=== PATIENT | male | born 1975 | race Caucasian/White ===

== ENCOUNTER 2018-06-27 01:57 | Inpatient (IN) | payer MEDICAID ==
[2018-06-27] VITALS (10 sets, daily range): BP systolic 108–166
[~2018-06-27] VITALS: Ht 185.4 cm; Wt 185.1 kg
[2018-06-27] MEDS ORDERED: DILTIAZEM HCL 25 MG/5 ML VIAL IVP ONE ×2 (02:15→03:00)
[2018-06-27] MEDS ORDERED: DILTIAZEM HCL 25 MG/5 ML VIAL ONE (02:19)
[2018-06-27 02:28] LABS: BASOPHILS % (AUTO) 0.8 % (0.0-2.0); EOSINOPHILS # (AUTO) 0.1 K/uL (0.0-0.4); EOSINOPHILS % (AUTO) 1.5 % (0.0-4.0); HEMATOCRIT 30.5 % (36-54); LYMPHOCYTES # (AUTO) 1.8 K/uL (1.0-5.5); LYMPHOCYTES % (AUTO) 33.7 % (20.5-51.5); MEAN CORPUSCULAR HEMOGLOBIN 22 pg (27-31); MEAN CORPUSCULAR HGB CONC 30 % (32-36); MEAN CORPUSCULAR VOLUME 76 fL (79.0-98.0); MONOCYTES # (AUTO) 0.5 K/uL (0.0-1.0); MONOCYTES % (AUTO) 9.2 % (1.7-9.3); NEUTROPHILS # (AUTO) 2.9 K/uL (1.8-7.7); NEUTROPHILS % (AUTO) 54.8 % (40.0-70.0); PLATELET COUNT (AUTO) 211 K/uL (130-430); RED BLOOD CELL COUNT(AUTO) 4.03 MIL/uL (4.2-6.2); RED CELL DISTRIBUTION WIDTH 21.8 % (9.0-15.0); WHITE BLOOD COUNT (AUTO) 5.2 K/uL (4.8-10.8)
[2018-06-27 02:42] LABS: CALCIUM 8.7 mg/dL (8.4-11.0); CREATININE 0.97 mg/dL (0.55-1.30)
[2018-06-27 02:46] LABS: INR 0.9 (0.80-1.20); PROTHROMBIN TIME 9.6 SECS (9.5-12.5)
[2018-06-27 02:47] LABS: ALBUMIN 3.2 g/dL (3.4-4.8); TOTAL BILIRUBIN 0.7 mg/dL (0.0-1.0)
[2018-06-27] MEDS ORDERED: ASA81 PO (03:23)
[2018-06-27] MEDS ORDERED: FERR-69 PO (03:23)
[2018-06-27] MEDS ORDERED: THIA50TA10 PO (03:23)
[2018-06-27] MEDS ORDERED: METO-442 PO (03:23)
[2018-06-27] MEDS ORDERED: FOLI-43 PO (03:23)
[2018-06-27] MEDS ORDERED: FURO-149 PO (03:23)
[2018-06-27] MEDS ORDERED: DILT240C54 PO (03:23)
[2018-06-27] MEDS ORDERED: DILTIAZEM HCL 125 MG in D5W 100 ML IV ONE (04:00)
[2018-06-27] MEDS ORDERED: KETOROLAC TROMETHAMINE 30 MG VIAL IVP ONE (04:00)
[2018-06-27] MEDS ORDERED: DILTIAZEM HCL 125 MG/25 ML VIAL IV ONE (04:10)
[2018-06-27] MEDS ORDERED: POTASSIUM CHLORIDE 20 MEQ TAB.PRT.SR PO ONE (04:30)
[2018-06-27] MEDS ORDERED: MAGNESIUM OXIDE 400 MG TABLET PO ONE (04:30)
[2018-06-27 05:12] LABS: THYROID STIMULATING HORMONE 2.11 uIu/mL (0.34-4.82)
[2018-06-27] MEDS ORDERED: MAGNESIUM OXIDE 400 MG TABLET ONE (05:28)
[2018-06-27] MEDS ORDERED: ACETAMINOPHEN 325 MG TABLET PO PRN (08:30)
[2018-06-27] MEDS ORDERED: METOPROLOL TARTRATE 50 MG TABLET PO SCH (09:00)
[2018-06-27] MEDS: FERROUS SULFATE 325 MG TABLET.DR PO SCH ×2 (10:16→20:04)
[2018-06-27] MEDS: POTASSIUM CHLORIDE 20 MEQ TAB.PRT.SR PO SCH ×2 (10:17→20:03)
[2018-06-27] MEDS: PANTOPRAZOLE SODIUM 40 MG TAB PO SCH (10:17)
[2018-06-27] MEDS: FOLIC ACID 1 MG TABLET PO SCH (10:17)
[2018-06-27] MEDS: METOPROLOL TARTRATE 50 MG TABLET PO SCH ×2 (10:18→20:04)
[2018-06-27] MEDS: THIAMINE HCL 100 MG TABLET PO SCH (10:18)
[2018-06-27] MEDS: SPIRONOLACTONE 50 MG TABLET (ALDACTONE) PO SCH ×2 (10:21→20:04)
[2018-06-27] MEDS: FUROSEMIDE 40 MG/4 ML VIAL IVP SCH ×2 (10:22→20:05)
[2018-06-27] MEDS: traMADol HCL HCL 50 MG TABLET (ULTRAM) PO PRN ×2 (16:35→22:43)
[2018-06-27] MEDS ORDERED: ONDANSETRON HCL 4 MG/2 ML VIAL IM PRN (21:45)
[2018-06-27] MEDS ORDERED: IPRATROPIUM/ALBUTEROL SULFATE 3 ML AMPUL.NEB (DUONEB) INH PRN (22:45)
[2018-06-28 00:41] VITALS: BP_SYST 124
[2018-06-28] MEDS: traMADol HCL HCL 50 MG TABLET (ULTRAM) PO PRN ×3 (04:44→22:45)
[2018-06-28 05:46] LABS: PROTHROMBIN TIME 10.3 SECS (9.5-12.5)
[2018-06-28] MEDS ORDERED: DIGOXIN 0.5 MG/2 ML AMP IVP ONE (06:00)
[2018-06-28 06:32] LABS: BASOPHILS # (AUTO) 0.1 K/uL (0.0-0.2); BASOPHILS % (AUTO) 1.8 % (0.0-2.0); EOSINOPHILS # (AUTO) 0.2 K/uL (0.0-0.4); EOSINOPHILS % (AUTO) 2.4 % (0.0-4.0); HEMATOCRIT 29.9 % (36-54); LYMPHOCYTES # (AUTO) 1.2 K/uL (1.0-5.5); LYMPHOCYTES % (AUTO) 19.7 % (20.5-51.5); MEAN CORPUSCULAR HEMOGLOBIN 23 pg (27-31); MEAN CORPUSCULAR HGB CONC 30 % (32-36); MEAN CORPUSCULAR VOLUME 75 fL (79.0-98.0); MONOCYTES # (AUTO) 0.8 K/uL (0.0-1.0); MONOCYTES % (AUTO) 12.8 % (1.7-9.3); NEUTROPHILS % (AUTO) 63.3 % (40.0-70.0); PLATELET COUNT (AUTO) 230 K/uL (130-430); RED BLOOD CELL COUNT(AUTO) 3.97 MIL/uL (4.2-6.2); RED CELL DISTRIBUTION WIDTH 21.9 % (9.0-15.0); WHITE BLOOD COUNT (AUTO) 6.3 K/uL (4.8-10.8)
[2018-06-28 06:55] LABS: ALBUMIN 3.1 g/dL (3.4-4.8); CALCIUM 8.9 mg/dL (8.4-11.0); CREATININE 0.92 mg/dL (0.55-1.30); POTASSIUM 3.5 mmol/L (3.5-5.1); THYROID STIMULATING HORMONE 2.26 uIu/mL (0.34-4.82); TOTAL BILIRUBIN 1.1 mg/dL (0.0-1.0)
[2018-06-28 07:02] LABS: TOTAL IRON BIND. CAPACITY 489 ug/dL (250-450)
[2018-06-28] MEDS: FOLIC ACID 1 MG TABLET PO SCH (07:56)
[2018-06-28] MEDS: THIAMINE HCL 100 MG TABLET PO SCH (07:56)
[2018-06-28] MEDS: FUROSEMIDE 40 MG/4 ML VIAL IVP SCH ×2 (07:56→20:21)
[2018-06-28] MEDS: FERROUS SULFATE 325 MG TABLET.DR PO SCH ×2 (07:56→20:18)
[2018-06-28] MEDS: POTASSIUM CHLORIDE 20 MEQ TAB.PRT.SR PO SCH ×2 (07:57→20:18)
[2018-06-28] MEDS: PANTOPRAZOLE SODIUM 40 MG TAB PO SCH (07:57)
[2018-06-28] MEDS: SPIRONOLACTONE 50 MG TABLET (ALDACTONE) PO SCH ×2 (07:57→20:20)
[2018-06-28] MEDS: METOPROLOL TARTRATE 50 MG TABLET PO SCH ×2 (07:57→20:20)
[2018-06-28 08:07] VITALS: BP_SYST 136
[2018-06-28 08:32] VITALS: BP_SYST 142
[2018-06-28] MEDS ORDERED: DILTIAZEM HCL 240 MG CAP.SR.24H PO ONE (08:45)
[2018-06-28 12:43] VITALS: BP_SYST 133
[2018-06-28 17:15] VITALS: BP_SYST 139
[2018-06-28 19:15] VITALS: BP_SYST 142
[2018-06-29 00:18] VITALS: BP_SYST 130
[2018-06-29 07:06] LABS: BASOPHILS # (AUTO) 0.1 K/uL (0.0-0.2); BASOPHILS % (AUTO) 0.8 % (0.0-2.0); EOSINOPHILS # (AUTO) 0.2 K/uL (0.0-0.4); EOSINOPHILS % (AUTO) 2.8 % (0.0-4.0); HEMATOCRIT 31.4 % (36-54); HEMOGLOBIN 9.3 g/dL (14.0-18.0); LYMPHOCYTES # (AUTO) 1.4 K/uL (1.0-5.5); MEAN CORPUSCULAR HEMOGLOBIN 23 pg (27-31); MEAN CORPUSCULAR HGB CONC 30 % (32-36); MEAN CORPUSCULAR VOLUME 77 fL (79.0-98.0); MONOCYTES # (AUTO) 0.8 K/uL (0.0-1.0); MONOCYTES % (AUTO) 9.7 % (1.7-9.3); NEUTROPHILS # (AUTO) 5.5 K/uL (1.8-7.7); NEUTROPHILS % (AUTO) 68.7 % (40.0-70.0); PLATELET COUNT (AUTO) 231 K/uL (130-430); RED BLOOD CELL COUNT(AUTO) 4.09 MIL/uL (4.2-6.2)
[2018-06-29 07:56] LABS: CALCIUM 9.1 mg/dL (8.4-11.0); POTASSIUM 4.3 mmol/L (3.5-5.1)
[2018-06-29 08:03] VITALS: BP_SYST 152
[2018-06-29 08:04] LABS: TOTAL BILIRUBIN 1.3 mg/dL (0.0-1.0)
[2018-06-29] MEDS: FUROSEMIDE 40 MG/4 ML VIAL IVP SCH (08:16)
[2018-06-29] MEDS: POTASSIUM CHLORIDE 20 MEQ TAB.PRT.SR PO SCH (08:17)
[2018-06-29] MEDS: FOLIC ACID 1 MG TABLET PO SCH (08:17)
[2018-06-29] MEDS: METOPROLOL TARTRATE 50 MG TABLET PO SCH (08:17)
[2018-06-29] MEDS: SPIRONOLACTONE 50 MG TABLET (ALDACTONE) PO SCH (08:18)
[2018-06-29] MEDS: THIAMINE HCL 100 MG TABLET PO SCH (08:18)
[2018-06-29] MEDS: PANTOPRAZOLE SODIUM 40 MG TAB PO SCH (08:18)
[2018-06-29] MEDS: FERROUS SULFATE 325 MG TABLET.DR PO SCH (08:18)
[2018-06-29] MEDS ORDERED: DILTIAZEM HCL 180 MG CAP.SR.24H PO SCH (09:00)
[2018-06-29] MEDS ORDERED: FUROSEMIDE 40 MG TABLET PO SCH (09:00)
[2018-06-29] MEDS ORDERED: DILTIAZEM HCL 240 MG CAP.SR.24H PO SCH (09:00)
[2018-06-29] MEDS: traMADol HCL HCL 50 MG TABLET (ULTRAM) PO PRN (11:17)
[2018-06-29 11:38] VITALS: BP_SYST 131
[2018-06-29 14:13] VITALS: BP_SYST 131
== END 2018-06-29 14:55 | disposition home or self-care (01) | DRG 194 ==
LOC: SED 01:57 → SIC 04:30 → STU 11:16
PROVIDERS: ADMIT Internal Medicine; ATTEND Internal Medicine
PROC: 5A09357 Assistance with Respiratory Ventilation, Less than 24 Consecutive Hours, Continuous Positive Airway Pressure (ICD-10-PCS; principal; 2018-06-28)
DX: I11.0 Hypertensive heart disease with heart failure (principal); J96.11 Chronic respiratory failure with hypoxia; Z99.81 Dependence on supplemental oxygen; E66.01 Morbid (severe) obesity due to excess calories; I48.2 Chronic atrial fibrillation; D64.9 Anemia, unspecified; F10.20 Alcohol dependence, uncomplicated; E87.6 Hypokalemia; G47.33 Obstructive sleep apnea (adult) (pediatric); J44.9 Chronic obstructive pulmonary disease, unspecified; Z79.899 Other long term (current) drug therapy; Z68.43 Body mass index [BMI] 50.0-59.9, adult; Z79.82 Long term (current) use of aspirin; I50.31 Acute diastolic (congestive) heart failure
CPT/HCPCS: 36415; 36600; 71045; 80053; 80061; 82803-TC; 83540-TC; 83550-TC; 83735-TC; 83880; 84443-TC; 84484; 85025; 85610-TC; 85730-TC; 87081; 93005; 93306; 94660; 94760; 96374; 96375; 99291; G0378; J1160; J1885; J1940; J2405; J3490; J7620